=== PATIENT | female | born 1995 | race African-American/Black ===

== ENCOUNTER 2019-02-14 18:22 | Emergency (ER) | payer OTHER ==
[~2019-02-14] VITALS: Ht 167.6 cm; Wt 125.2 kg
[2019-02-14 18:49] VITALS: BP 117/62
[2019-02-14] MEDS ORDERED: PREN-96 PO (20:06)
== END 2019-02-14 18:51 | disposition still patient (30) ==
LOC: ER 18:37
DX: O26.892 Other specified pregnancy related conditions, second trimester (principal); R10.9 Unspecified abdominal pain; Z3A.21 21 weeks gestation of pregnancy

== ENCOUNTER 2019-02-14 19:00 | Observation (INO) | payer OTHER ==
[2019-02-14] MEDS ORDERED: PREN-96 PO (20:06)
== END 2019-02-14 21:45 | disposition home or self-care (01) | DRG 566 ==
LOC: LDRP 19:00
PROVIDERS: ADMIT Specialist; ATTEND Specialist
DX: O26.892 Other specified pregnancy related conditions, second trimester (principal); R10.30 Lower abdominal pain, unspecified; Z3A.21 21 weeks gestation of pregnancy
CPT/HCPCS: 59025; 76805; 81002; G0378